=== PATIENT | female | born 1945 | race American Indian/Alaskan Native ===

== ENCOUNTER 2017-02-08 10:22 | Emergency (ER) | payer MEDICARE ==
[2017-02-08] MEDS ORDERED: SODIUM BICARBONATE IV ONE (10:35)
[2017-02-08] MEDS ORDERED: ADRENALIN ONE (10:35)
[2017-02-08] MEDS ORDERED: D50W (25GM) IV ONE (10:35)
[2017-02-08] MEDS ORDERED: CORDARONE IV ONE (10:35)
--- NOTE | 2017-02-08 10:44 | Emergency Department Report ---
ED CPR HPI - General Chief Complaint: Cardiac Arrest/CPR Stated Complaint: CARDIAC ARREST Time Seen by Provider: 02/08/17 10:43 Source: EMS (verbal report received from EMS.ems notes not available at time of chart dictation) Mode of arrival: Stretcher Limitations: Altered Mental Status - History of Present Illness Initial Comments: This is a 71-year-old female. She is brought to the hospital by EMS for cardiac arrest. As per verbal report from EMS, patient was at dialysis, and had almost completed her dialysis session when she began to complain of chest pain. EMS reports that the patient was initially alert in the field, and then had a cardiac arrest in the field. EMS reports that initial rhythm was V. fib. They reports shocking the patient, giving epinephrine, initiating CPR, and intubating the patient with a 7-0 endotracheal tube. Upon arrival to the ER, patient's pupils were fixed and dilated, nonresponsive to light. Her presenting rhythm was pulseless electrical activity. A stat left lower extremity intraosseous line is placed by myself with no difficulty. Standard ACLS interventions are continued. Patient was treated aggressively with multiple medications and chest compressions. EMS verbally estimated of the patient was pulseless for at least 10 minutes prior to arrival. Patient was coded for at least 10-15 minutes upon arrival. Given that the patient has been pulseless for at least 25-30 minutes, with no pupillary activity, electrical rhythm in the ER appears to be consistent with pulseless electrical activity, and a stat bedside ultrasound demonstrates no coronary left ventricular activity, with probable large thrombus formation in the right atrium and right ventricle, resuscitation efforts are terminated secondary to medical futility. Family is informed. Complaint: collapsed during rest -: minute(s) Place: other Bystander CPR Performed: No Initial Findings in the Field: no pulse, VTACH/VFIB, PEA ROSC in the Field: No Associated Symptoms: chest pain Treatments Prior to Arrival: intubation, chest compressions, epinephrine mgs # - Related Data Home Medications Medication Instructions Recorded Confirmed Last Taken Cholecalciferol (Vitamin D3) 2,000 units PO DAILY 11/13/13 11/13/13 11/13/13 [Vitamin D3] Furosemide [Lasix] 40 mg PO BID 11/13/13 11/13/13 11/13/13 Hydralazine HCl [Apresoline TAB] 50 mg PO TID 11/13/13 11/13/13 11/13/13 Labetalol [Normodyne TAB] 300 mg PO TID 11/13/13 11/13/13 11/13/13 Pv W-O Vicente/Ferrous Fumarate/FA 1 tab PO DAILY 11/13/13 11/13/13 11/13/13 [M-Vit Caplet] Sevelamer Carbonate [Renvela] 800 mg PO TID 11/13/13 11/13/13 11/13/13 cloNIDine [Catapres] 0.3 mg PO TID 11/13/13 11/13/13 11/13/13 Previous Rx's Medication Instructions Recorded Last Taken Type Cephalexin [Keflex] 500 mg PO TID #21 capsule 11/14/13 Unknown Rx oxyCODONE /ACETAMINOPHEN [Percocet 1 tab PO Q6HR PRN #20 tablet 11/14/13 Unknown Rx 5/325 mg] Allergies Allergy/AdvReac Type Severity Reaction Status Date / Time No Known Allergies Allergy Verified 11/13/13 21:40 ED Review of Systems ROS: Stated complaint: CARDIAC ARREST Other details as noted in HPI ED Past Medical Hx - Past Medical History Hx Hypertension: Yes Hx Renal Disease: Yes Additional medical history: Dialysis ([facility], [facility]), 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 - Social History Smoking Status: Never Smoker Substance Use Type: None - Medications Home Medications: Home Medications Medication Instructions Recorded Confirmed Last Taken Type Cholecalciferol (Vitamin D3) 2,000 units PO DAILY 11/13/13 11/13/13 11/13/13 History [Vitamin D3] Furosemide [Lasix] 40 mg PO BID 11/13/13 11/13/13 11/13/13 History Hydralazine HCl [Apresoline TAB] 50 mg PO TID 11/13/13 11/13/13 11/13/13 History Labetalol [Normodyne TAB] 300 mg PO TID 11/13/13 11/13/13 11/13/13 History Pv W-O Vicente/Ferrous Fumarate/FA 1 tab PO DAILY 11/13/13 11/13/13 11/13/13 History [M-Vit Caplet] Sevelamer Carbonate [Renvela] 800 mg PO TID 11/13/13 11/13/13 11/13/13 History cloNIDine [Catapres] 0.3 mg PO TID 11/13/13 11/13/13 11/13/13 History Cephalexin [Keflex] 500 mg PO TID #21 capsule 11/14/13 Unknown Rx oxyCODONE /ACETAMINOPHEN [Percocet 1 tab PO Q6HR PRN #20 tablet 11/14/13 Unknown Rx 5/325 mg] ED Physical Exam - General Limitations: Other (patient intubated, GCS of 3) General appearance: other (intubated, GCS of 3) - Head Head exam: Present: atraumatic, normocephalic - Eye Eye exam: Present: other (pupils are fixed and dilated, do not respond to light) - ENT ENT exam: Present: other (endotracheal tube noted in the oropharynx) - Neck Neck exam: Present: normal inspection - Respiratory Respiratory exam: Present: other (breath sounds are heard when bagged valve mask ventilations applied. Otherwise, no breath sounds are auscultated) - Cardiovascular Cardiovascular Exam: Present: other (patient is pulseless) - GI/Abdominal GI/Abdominal exam: Present: soft - Rectal Rectal exam: Present: deferred - Extremities Exam Extremities exam: Present: normal inspection, other (left upper extremity AV fistula is appreciated) - Back Exam Back exam: Present: normal inspection - Neurological Exam Neurological exam: Present: other (GCS of 3, nonverbal) - Psychiatric Psychiatric exam: Present: other (nonverbal) - Skin Skin exam: Present: dry - IO Left Tibia Consent Obtained: emergent situation (betadyne applied to area) Time Out Performed: No (emergent) IO Instrument Used to Penetrate the Cortex: standard IO needle Patient Tolerated Procedure: well, no complications Complications: none Critical care attestation.: If time is entered above; I have spent that time in minutes in the direct care of this critically ill patient, excluding procedure time. ED Disposition Clinical Impression: Cardiac arrest Disposition: Is pt being admited?: No Does the pt Need Aspirin: No Condition: Undetermined
== END 2017-02-08 13:51 ==
LOC: ED 10:22
DX: I46.9 Cardiac arrest, cause unspecified (principal); I10 Essential (primary) hypertension
CPT/HCPCS: 36680; 92950; 99285; J0171; J0282